=== PATIENT | female | born 1955 | race Caucasian/White ===

== ENCOUNTER → 2023-10-27 10:17 | Outpatient (REF) | payer MEDICARE, OTHER, SELFPAY | LOC: HWWDC 10:17 | PROVIDERS: ATTENDING PHYSICIAN Obstetrics & Gynecology Gynecology; FAMILY PHYSICIAN Nurse Practitioner Family | DX: Z12.31 Encounter for screening mammogram for malignant neoplasm of breast (principal) | CPT/HCPCS: 77063; 77067 ==

== ENCOUNTER → 2023-11-03 08:31 | Outpatient (REF) | payer MEDICARE, OTHER, SELFPAY | LOC: WDC 08:31 | PROVIDERS: ATTENDING PHYSICIAN Obstetrics & Gynecology Gynecology; FAMILY PHYSICIAN Nurse Practitioner Family | DX: R92.8 Other abnormal and inconclusive findings on diagnostic imaging of breast (principal) | CPT/HCPCS: 76642 ==

== ENCOUNTER 2023-12-04 14:26 | Emergency (ER) | payer MEDICARE, OTHER, SELFPAY ==
[2023-12-04 14:39] VITALS: BP 136/70
[2023-12-04] MEDS: TYLENOL 1000 MG PO (16:34)
--- NOTE | 2023-12-04 16:40 | ED.GENMED ---
History of Present Illness
General
Chief Complaint: Back Pain
Source: patient
Exam Limitations: none
Time Seen by Provider: 12/04/23 15:37
Nursing documentation reviewed up to this point in time: agreed with
Travel History
Have you had any contact with someone who has COVID-19?: No
Do you have any symptoms of coronavirus? Fever > 100 degrees, chills, cough, shortness of breath, sore throat, loss of taste or smell, muscle aches, or headache?: No
History of Present Illness
History of Present Illness:
68 y/o F with h/o palpitations, s/p ablation
Not anticoagulated presents for lower back pain after a fall. Patient says she was at 's was going to get a shopping cart and did not see a bar hanging down. She hit the top of her head on the bar and then fell backwards onto her back. She has
no nausea or vomiting, confusion, dazed feeling, headache. She does have a small lump at the top of her head. She was not concerned about her head but more about her lower back pain which is lower midline and nonradiating. She is not having any
numbness tingling weakness
she has pain with sitting, changing position, walking
nothing taken for pain
canot tolerate NSAIDS and opiates (vomits with vicodin)
Past History
Past History
ED Past Medical History: Hyperthyroidism ('Goiter' followed clinically)
ED Past Surgical History: Appendectomy, and Tonsilectomy
Social History
Tobacco: Non-smoker
Alcohol: None
Drug: None
Personal:
Living: with family
Review of Systems
Review of Systems
Allergies reviewed?: Yes
All Other Systems: Not applicable
Phy Exam
Physical Exam
Physical Exam:
GENERAL: Alert , in no apparent distress, comfortable at rest
HEAD: NCAT
NECK: no midline tenderness, active ROM intact, no paraspinal muscle tenderness;
CARDIAC: Regular rate and rhythm, no edema
LUNGS: Clear breath sounds bilaterally, no acute respiratory distress, no wheezes/rales/rhonchi
ABDOMEN: Soft, without focal tenderness, no r/g, no cvat, normal bowel sounds, nondistended
NEUROLOGICAL: Alert and oriented, no focal neuro deficits, CN intact, 5/5 strength, sensation intact, ambulation slight limp left leg
SKIN: Warm and dry,
MUSCULOSKELETAL: No edema, well perfused.
Back: No midline tenderness, no tenderness; some pain wwith changing psition no swelling
negative straight leg raise Bilaterally
PSYCH: Normal and appropriate interaction.
Course
Orders/Labs/Results
Orders:
Orders
12/04/23 16:28
Acetaminophen [Tylenol] 1,000 mg PO NOW STA
Lumbar Spine Complete, 4 View [CR Lumbar Spine Comp Min 4 Vw*] Urgent
Comment:
Reason For Exam: lower back pain after fall backwards
12/04/23 16:29
Lidocaine [Lidocaine 4% Patch] 1 patch TOPICAL NOW STA
12/04/23 18:18
Tramadol HCl [Ultram] 50 mg PO NOW STA
Vital Signs
Initial and Last Documented VS:
Initial Vital Signs
Temp Pulse Resp BP Pulse Ox
98.4 F 74 18 136/70 99
12/04/23 14:39 12/04/23 14:39 12/04/23 14:39 12/04/23 14:39 12/04/23 14:39
Last Documented Vital Signs
Temp Pulse Resp BP Pulse Ox
98.4 F 67 14 142/77 96
12/04/23 14:39 12/04/23 17:27 12/04/23 17:27 12/04/23 17:59 12/04/23 17:59
MDM/Problems Addressed
Differential Diagnosis Includes:
compression fx, head injury, ocncussion, contusion
MDM/Problems Addressed:
68 y/o F with mechanical fall back wards after striking top of her head on a bar
no headache, confusion, weakness etc
but moderate low back pain worse with changing position
no radicular symptoms
no red flag sypmtoms
exam pain with movement but otherwise benign
no sngiifncatn head hematoma
has been > 6 hours from the injury and no sequelae to be concerned about head injury
no thinners
offered ct which pt declined
xrays indep reviewed by me and shows compression fx l1
pt is able to walk
she wants tot ry tramadol
but cautious with vomiting so requeistng zofran
d/c home
f/u outpatient, pt/
*Critical Care Note
Total Time (30-74mins, 75-104mins- exclusive of procedures): Not Applicable
ED Attending Note
-
Portions of this chart may have been created with voice recognition software.� Occasional wrong word or��sound alike� substitutions may have occurred due to the inherent limitations of voice recognition software.
Discharge Plan
Departure
Patient Disposition: Home (Routine Discharge)
Date of Disposition: 12/04/23
Time of Disposition: 17:57
Patient with high blood pressure during this ER visit?: No
Condition: Fair
Covid-19: Not Applicable
Discharge Problem:
Compression fracture of lumbar vertebra
Instructions: Vertebral Compression Fracture (DC)
Prescriptions:
New
tramadol 50 mg tablet
50 mg PO Q8H PRN (Reason: Pain) Qty: 14 0RF
lidocaine 5 % adhesive patch,medicated
1 patch topical DAILY PRN (Reason: BACK PAIN) Qty: 15 0RF
ondansetron 4 mg tablet,disintegrating
4 mg PO Q8H PRN (Reason: nausea and vomiting) 2 Days Qty: 10 0RF
No Action
calcium carbonate 600 MG tablet
600 mg PO QPM
cholecalciferol (vitamin D3) [Vitamin D3] 2,000 UNIT capsule
2,000 unit PO QPM
Ginkoba 120 MG Tab
1 tab PO QPM
Patient Comments:
w/ vinpocetine
acetaminophen [Tylenol] 325 MG capsule
650 mg PO
Referrals:
Lewis Mitchell MD [Active] - Follow up in 1 week
Fransisca Melendez CRNP [Family Provider] - Follow up in 5-7 days
Activity Restrictions/Additional Instructions:
YOU HAVE A COMPRESSION FRACTURE IN YOUR SPINE L1
THESE ARE USUALLY TREATED WITH PAIN MEDICATIONS
SOMETIMES PHYSICAL THERAPY IS NECESSARY
DR. MITCHELL IS PAIN MANAGEMENT AND CAN HELP WITH THE PAIN
CALL YOUR DOCTOR FOR FOLLOW UP
RETURN FOR: LEG WEAKNESS, NUBMNESS, INCONTIENCE, FEVER, OR ANY CONCERNS.
TAKE TYLENOL 3 TIMES A DAY FOR PAIN
LIDOCAINE PATCH 12 HOURS ON 12 HOURS OFF NEEDE
D
IF THE PAIN IS WORSE YOU CAN TRY TRAMADOL 50 MG 2-3 TIME SA DAY
if you have nausea/vomiting you can use zofran 4 mg every 8 hours as needed
THIS CAN MAKE YOU SLEEPY, YOU CAN TRY TAKING COLACE 100 TWICE A DAY WHILE YOU ARE TAKING THAT BECAUSE OF CONSTIPATION
RETURN FOR ANY CONCERNS.
Interventions
Interventions:
*Risk Screen - Suicide Last Done: 12/04/23 14:39
*General Assessment Last Done: 12/04/23 14:39
*Neglect/Abuse Screening Last Done: 12/04/23 14:39
*ED COVID-19 Vaccine History Last Done: 12/04/23 14:39
*Nursing Disposition Last Done: 12/04/23 17:59
ED-Musculoskeletal Assessment Last Done: 12/04/23 17:58
Discharge Date and Time
Discharge Date/Time: 12/04/23 18:26
[2023-12-04] MEDS: LIDOCAINE 4% PATCH 1 PATCH TOPICAL (17:25)
[2023-12-04 17:27] VITALS: BP 142/77
[2023-12-04 17:59] VITALS: BP 142/77
[2023-12-04] MEDS: ULTRAM 50 MG PO (18:23)
== END 2023-12-04 18:26 | disposition home or self-care (01) ==
LOC: EMR 14:26
PROVIDERS: EMERGENCY PHYSICIAN Emergency Medicine; FAMILY PHYSICIAN Nurse Practitioner Family
DX: M48.56XA Collapsed vertebra, not elsewhere classified, lumbar region, initial encounter for fracture (principal); W19.XXXA Unspecified fall, initial encounter
CPT/HCPCS: 99283; 72110

== ENCOUNTER 2023-12-09 17:13 | Emergency (ER) | payer MEDICARE, OTHER, SELFPAY ==
[2023-12-09 17:20] VITALS: BP 153/60
--- NOTE | 2023-12-09 18:19 | ED.GENMED ---
History of Present Illness
General
Chief Complaint: Bowel Problem
Source: patient
Exam Limitations: none
Time Seen by Provider: 12/09/23 17:57
Travel History
Have you had any contact with someone who has COVID-19?: No
Do you have any symptoms of coronavirus? Fever > 100 degrees, chills, cough, shortness of breath, sore throat, loss of taste or smell, muscle aches, or headache?: No
History of Present Illness
History of Present Illness:
This is a 68 year old female that comes in with c/o constipation. States that last week she fell injuring her back. States that she palacios a compression Fracture of L1 and was placed on Tramadol for the pain. States that she hasn't had a BM since last
before the fall. States that she called the PCP and has taken Colace, Miralax and she felt bloated with this. States that today she use an enema and only got a few bullets out. States that the PCP told her to come to the ER. States that her
abd is sore. Denies any fever, chills, chest pain, SOB, nausea, vomiting, diarrhea, headache, dizziness, urinary burning
Past History
Past History
ED Past Medical History: Arrthythmia (Atrial fib/flutter), Hyperthyroidism ('Goiter' followed clinically) and Other (Diverticulitis, Goiter)
ED Past Surgical History: Appendectomy, Cardiac (Ablation), (X 3), Tonsilectomy and Other (Partial Thyroidectomy)
Social History
Tobacco: Non-smoker
Alcohol: Occasional
Drug: None
Personal:
Living: with family
Review of Systems
Review of Systems
All Other Systems: ROS reviewed and negative except as documented in HPI and ROS
Constitutional: Reports no symptoms; Denies fever or chills
EENT: Reports no symptoms
Respiratory: Denies cough or trouble breathing
Cardiac: Reports no symptoms; Denies chest pain
ABD/GI: Reports abdominal pain (Soreness) and constipated; Denies nausea, vomiting or diarrhea
: Reports no symptoms; Denies dysuria, frequency or urgency
Musculoskeletal: Reports no symptoms
Skin: Reports no symptoms
Neurological: Reports no symptoms; Denies dizzy or headache
Psychiatric: Reports no symptoms
Phy Exam
General Physical Exam
General Presentation: well appearing and no apparent distress
General age: appears stated age
General Skin: warm and dry
General Habitus: elderly
General Mental: alert
General Hydration: dry mucous membranes
ENT Exam
ENT Exam: TM's normal, pharynx normal and neck supple
Eye Exam
Eye Exam: EOMI
Cardiovascular Exam
Cardiovascular Exam: regular rate/rhythm, no edema, no murmur and normal peripheral pulses
Pulmonary Exam
Pulmonary Exam: lungs clear, no respiratory distress, no rales, chest non tender, no crackles, no rhonchi, no wheezing and no cough
Gastrointestinal Exam
Gastrointestinal Exam: soft, no organomegaly, no pulsatile mass, non distended, tender (Soreness with palpation) and other (Hypoactive bowel sounds)
Musculoskeletal Exam
Musculoskeletal Exam: full ROM and no edema
Skin Exam
Skin Exam: normal color, warm/dry, no petechia and other (Red angimas noted over abd)
Psychiatric Exam
Psychiatric Exam: normal mood/affect
Course
Orders/Labs/Results
Orders:
Orders
12/09/23 18:18
Obstruct Series W/PA Chest [CR Obstruct Series W/pa Chest] Urgent
Comment:
Reason For Exam: No BM since , abd discomfort
12/09/23 18:19
0.9% Sodium Chloride 1000 ml [Nss] 1,000 ml IV BOLUS
12/09/23 18:20
Complete Blood Count/With Diff Urgent
Comprehensive Metabolic Panel Urgent
12/09/23 19:59
Enema- Treatment ONCE
Type: Milk of Molasses
Abnormal Lab Results
12/09/23
18:20
MCHC 32.8 L g/dL
(33.0-37.0)
RDW 14.6 H %
(11.5-14.5)
Absolute Neuts (auto) 6.8 H 10^3/uL
(1.4-6.5)
Lymphocytes % 18.6 L %
(20.5-51.1)
Sodium 133 L mmol/L
(135-145)
Glucose 105 H mg/dl
(70-99)
12/09/23 18:20
12/09/23 18:20
Sodium slightly low. Glucose nonfasting.
Vital Signs
Initial and Last Documented VS:
Initial Vital Signs
Temp Pulse Resp BP Pulse Ox
98.3 F 79 18 153/60 98
12/09/23 17:20 12/09/23 17:20 12/09/23 17:20 12/09/23 17:20 12/09/23 17:20
Last Documented Vital Signs
Temp Pulse Resp BP Pulse Ox
98.3 F 64 16 130/58 97
12/09/23 17:20 12/09/23 18:26 12/09/23 18:26 12/09/23 18:26 12/09/23 18:26
MDM/Problems Addressed
Differential Diagnosis Includes:
Constipation,
MDM/Problems Addressed:
This is a 68 year old female that comes in with c/o no BM since last . States that she fell after this and was place on Tramadol. Patient states that she has tried Colace, Miralax and an enema today with only small bullets.
Will check labs, get Obstruction series, give IV fluids and enema as needed.
Back into see patient. Patient states that she has now gone several times since the enema. Explained that this may be just enough to stimulate the bowel. Explained to patient that she needs to start eating and that the Tramadol may be causing her
constipation. Patient is going to stop the Tramadol. Encouraged her to use Tylenol arthritis which is the max amount of Tylenol that you can take. Patient can also use heat or ice to the back. Follow up with the family doctor. Patient to return with
increased pain or any other concerns.
Chronic conditions affecting care:
NA
Acute Exacerbation and/or Progression of Chronic Illness:
NA
*Radiology
Radiology exam reviewed: radiology read reviewed (Obstruction series- MOderate fecal material in the transverse, descending and sigmoid colon. NO radiiographic evidence for colonic or small bowel obstruction. No radiographic evidence for acute
cardiopulmonary disease. Mild scoliotic curvature of the thoracolumbar spine. )
*Pulse Oximetry
Patient hypoxic: no
*EKG
Interpreted by ED Provider?: NA
Rate: EKG- N/A
*Bleacher Kraft Pulp Interpretation
Rate: Bleacher Kraft Pulp- N/A
*Critical Care Note
Total Time (30-74mins, 75-104mins- exclusive of procedures): Not Applicable
ED Attending Note
-
Portions of this chart may have been created with voice recognition software.� Occasional wrong word or��sound alike� substitutions may have occurred due to the inherent limitations of voice recognition software.
Discharge Plan
Departure
Patient Disposition: Home (Routine Discharge)
Date of Disposition: 12/09/23
Time of Disposition: 22:15
Patient with high blood pressure during this ER visit?: Yes
Condition: Good
Covid-19: Not Applicable
Discharge Problem:
Acute constipation
Instructions: Constipation, Adult (DC), BLOOD PRESSURE
Prescriptions:
No Action
calcium carbonate 600 MG tablet
600 mg PO QPM
cholecalciferol (vitamin D3) [Vitamin D3] 2,000 UNIT capsule
2,000 unit PO QPM
Ginkoba 120 MG Tab
1 tab PO QPM
Patient Comments:
w/ vinpocetine
acetaminophen [Tylenol] 325 MG capsule
650 mg PO
tramadol 50 mg tablet
50 mg PO Q8H PRN (Reason: Pain) Qty: 14 0RF
lidocaine 5 % adhesive patch,medicated
1 patch topical DAILY PRN (Reason: BACK PAIN) Qty: 15 0RF
ondansetron 4 mg tablet,disintegrating
4 mg PO Q8H PRN (Reason: nausea and vomiting) 2 Days Qty: 10 0RF
Referrals:
Fransisca Melendez CRNP [Family Provider] - Call in 1-3 days for appt
Activity Restrictions/Additional Instructions:
As discussed, your Obstruction series shows that there is no obstruction. There is moderate stool burden in the colon. You have been given an enema here that will help stimulate the bowel to move. Please increase your water intake to 8-8oz glasses
daily. You may also use Prune juice and mix this with apple juice and heat and drink daily. Follow up wtih the family doctor for recheck. You may use Tylenol arthritis for pain. IF YOU HAVE INCREASED ABD PAIN, OR YOU HAVE ANY OTHER CONCERNS PLEASE
RETURN TO THE EMERGENCY ROOM.
Interventions
Interventions:
*Risk Screen - Suicide Last Done: 12/09/23 18:16
*General Assessment Last Done: 12/09/23 18:15
*Neglect/Abuse Screening Last Done: 12/09/23 18:16
*ED COVID-19 Vaccine History Last Done: 12/09/23 18:15
CH-Txcpxg-Qomrxhcuif Assessment Last Done: 12/09/23 18:18
[2023-12-09] MEDS: NSS 1000 IV (18:25)
[2023-12-09 18:26] VITALS: BP 130/58
[2023-12-09 18:37] LABS: % Basophils 0.1 % (0-2); % Eosinophils 0.7 % (0-6); % Immature Granulocytes 0.3 % (0-0.5); % Lymphocytes 18.6 % (20.5-51.1); % Monocytes 5.7 % (1.7-9.3); % Neutrophils 74.6 % (42.2-75.2); Absolute Eosinophils 0.1 10^3/uL (0-0.7); Absolute Lymphocytes 1.7 10^3/uL (1.2-3.4); Absolute Monocytes 0.5 10^3/uL (0.1-0.6); Absolute Neutrophils 6.8 10^3/uL (1.4-6.5); Hemoglobin 12.8 g/dL (12.0-16.0); Mean Corp Hgb Conc. 32.8 g/dL (33.0-37.0); Mean Corpuscular Hgb 27.5 pg (27.0-31.0); Mean Corpuscular Volume 83.7 fL (81.0-99.0); Mean Platelet Volume 10.2 fL (7.4-10.4); Nucleated Red Blood Cells % 0 %; Platelet Count 248 10^3/uL (130-400); Red Blood Cell Count 4.66 10^6/uL (4.20-5.40); Red Cell Dist. Width 14.6 % (11.5-14.5); White Blood Cell Count 9.1 10^3/uL (4.8-10.8)
[2023-12-09 19:00] LABS: ALT (SGPT) 20 U/L (0-35); AST (SGOT) 26 U/L (14-36); Albumin 4.2 g/dl (3.5-5.0); Alkaline Phosphatase 98 U/L (38-126); Blood Urea Nitrogen 14 mg/dl (7-17); Calcium 9.3 mg/dl (8.4-10.2); Carbon Dioxide 25 mmol/L (22-30); Chloride 101 mmol/L (98-107); Glucose 105 mg/dl (70-99); Potassium 4.2 mmol/L (3.5-5.1); Sodium 133 mmol/L (135-145); Total Bilirubin 0.7 mg/dl (0.2-1.3); Total Protein 7.6 g/dl (6.3-8.2); eGFR > 60.00
[2023-12-09 22:34] VITALS: BP 119/61
== END 2023-12-09 22:35 | disposition home or self-care (01) ==
LOC: EMR 17:13
PROVIDERS: Clinical Nurse Specialist Family Health; EMERGENCY PHYSICIAN Student in an Organized Health Care Education/Training Program; FAMILY PHYSICIAN Nurse Practitioner Family
DX: K59.00 Constipation, unspecified (principal); I48.91 Unspecified atrial fibrillation; E05.90 Thyrotoxicosis, unspecified without thyrotoxic crisis or storm
CPT/HCPCS: 99283; 74022; 80053; 85025

== ENCOUNTER → 2024-01-09 10:26 | Outpatient (REF) | payer MEDICARE, OTHER, SELFPAY | LOC: HWRAD 10:26 | PROVIDERS: ATTENDING PHYSICIAN Nurse Practitioner Family | DX: M25.812 Other specified joint disorders, left shoulder (principal) | CPT/HCPCS: 73030 ==

== ENCOUNTER → 2024-01-29 10:15 | Outpatient (REF) | payer MEDICARE, OTHER, SELFPAY | LOC: HWRAD 10:15 | PROVIDERS: ATTENDING PHYSICIAN Nurse Practitioner Family | DX: K59.00 Constipation, unspecified (principal) | CPT/HCPCS: 74018 ==

== ENCOUNTER → 2024-07-02 07:26 | Outpatient (REF) | payer MEDICARE, OTHER, SELFPAY ==
[2024-07-02 09:40] LABS: % Basophils 0.2 % (0-2); % Eosinophils 1.1 % (0-6); % Immature Granulocytes 0.2 % (0-0.5); % Lymphocytes 22.6 % (20.5-51.1); % Monocytes 4.6 % (1.7-9.3); % Neutrophils 71.3 % (42.2-75.2); Absolute Eosinophils 0.1 10^3/uL (0-0.7); Absolute Lymphocytes 1.5 10^3/uL (1.2-3.4); Absolute Monocytes 0.3 10^3/uL (0.1-0.6); Absolute Neutrophils 4.6 10^3/uL (1.4-6.5); Hematocrit 41.3 % (37.0-47.0); Hemoglobin 13.6 g/dL (12.0-16.0); Mean Corp Hgb Conc. 32.9 g/dL (33.0-37.0); Mean Corpuscular Hgb 28.5 pg (27.0-31.0); Mean Corpuscular Volume 86.4 fL (81.0-99.0); Mean Platelet Volume 10.9 fL (7.4-10.4); Nucleated Red Blood Cells % 0 %; Platelet Count 261 10^3/uL (130-400); Red Blood Cell Count 4.78 10^6/uL (4.20-5.40); Red Cell Dist. Width 14.6 % (11.5-14.5); White Blood Cell Count 6.5 10^3/uL (4.8-10.8)
[2024-07-02 11:10] LABS: TSH Reflex To Free T4 2.29 uIU/ml (0.47-4.68)
[2024-07-02 11:15] LABS: ALT (SGPT) 25 U/L (0-35); AST (SGOT) 31 U/L (14-36); Albumin 4.3 g/dl (3.5-5.0); Alkaline Phosphatase 91 U/L (38-126); Blood Urea Nitrogen 18 mg/dl (7-17); Calcium 9.7 mg/dl (8.4-10.2); Carbon Dioxide 28 mmol/L (22-30); Chloride 102 mmol/L (98-107); Glucose 92 mg/dl (70-99); HDL Cholesterol 67 mg/dl; LDL Cholesterol, Calculated 108 mg/dl; Potassium 4.5 mmol/L (3.5-5.1); Sodium 143 mmol/L (135-145); Total Bilirubin 0.7 mg/dl (0.2-1.3); Total Cholesterol 191 mg/dl (50-199); Total Protein 7.3 g/dl (6.3-8.2); Triglyceride 80 mg/dl (10-149); Very Low Density Lipoprotein 16 mg/dl (0-30); eGFR > 60.00
[2024-07-02 13:11] LABS: Vitamin D, 25-OH*** 56.1 ng/mL (30-80)
== END ==
LOC: HWLAB 07:26
PROVIDERS: ATTENDING PHYSICIAN Nurse Practitioner Family
DX: Z00.00 Encounter for general adult medical examination without abnormal findings (principal); M85.80 Other specified disorders of bone density and structure, unspecified site; I48.0 Paroxysmal atrial fibrillation; G43.009 Migraine without aura, not intractable, without status migrainosus; E55.9 Vitamin D deficiency, unspecified; E05.90 Thyrotoxicosis, unspecified without thyrotoxic crisis or storm
CPT/HCPCS: 36415; 80053; 80061; 82306; 84443; 85025

== ENCOUNTER → 2024-07-22 06:21 | Day surgery (SDC) | payer MEDICARE, OTHER, SELFPAY | LOC: GI 06:21 | PROVIDERS: ATTENDING PHYSICIAN Internal Medicine Gastroenterology | DX: D12.2 Benign neoplasm of ascending colon (principal); K57.30 Diverticulosis of large intestine without perforation or abscess without bleeding; Q43.8 Other specified congenital malformations of intestine; K64.8 Other hemorrhoids; Z86.0101 Personal history of adenomatous and serrated colon polyps | CPT/HCPCS: 45385; 88305 ==

== ENCOUNTER → 2024-11-10 08:35 | Outpatient (REF) | payer MEDICARE, OTHER, SELFPAY | LOC: HWWDC 08:35 | PROVIDERS: ATTENDING PHYSICIAN Obstetrics & Gynecology Gynecology; FAMILY PHYSICIAN Nurse Practitioner Family | DX: M81.0 Age-related osteoporosis without current pathological fracture (principal); Z12.31 Encounter for screening mammogram for malignant neoplasm of breast | CPT/HCPCS: 77063; 77067; 77080 ==

== ENCOUNTER → 2025-01-04 09:17 | Outpatient (REF) | payer MEDICARE, OTHER, SELFPAY ==
[2025-01-04 12:51] LABS: Rubella Positive
[2025-01-06 13:40] LABS: Mumps Virus IgG Positive; Rubeola (Measles) IgG Positive
== END ==
LOC: HWLAB 09:17
PROVIDERS: ATTENDING PHYSICIAN Nurse Practitioner Family
DX: Z01.84 Encounter for antibody response examination (principal)
CPT/HCPCS: 36415; 86735; 86762; 86765

== ENCOUNTER → 2025-07-29 08:48 | Outpatient (REF) | payer MEDICARE, OTHER, SELFPAY ==
[2025-07-29 12:25] LABS: Hematocrit 43.3 % (37.0-47.0); Hemoglobin 13.8 g/dL (12.0-16.0); Mean Corp Hgb Conc. 31.9 g/dL (33.0-37.0); Mean Corpuscular Volume 88.2 fL (81.0-99.0); Nucleated Red Blood Cells % 0 %; Platelet Count 249 10^3/uL (130-400); Red Cell Dist. Width 14.0 % (11.5-14.5)
[2025-07-29 12:45] LABS: ALT (SGPT) 23 U/L (0-35); AST (SGOT) 28 U/L (14-36); Albumin 4.6 g/dl (3.5-5.0); Alkaline Phosphatase 83 U/L (38-126); Blood Urea Nitrogen 21 mg/dl (7-17); Calcium 9.7 mg/dl (8.4-10.2); Carbon Dioxide 31 mmol/L (22-30); Chloride 104 mmol/L (98-107); Glucose 87 mg/dl (70-99); HDL Cholesterol 73 mg/dl; LDL Cholesterol, Calculated 106 mg/dl; Potassium 4.3 mmol/L (3.5-5.1); Sodium 141 mmol/L (135-145); Total Protein 7.8 g/dl (6.3-8.2); Very Low Density Lipoprotein 17 mg/dl (0-30); eGFR > 60.00
[2025-07-29 13:05] LABS: Vitamin D, 25-OH*** 52.5 ng/mL (30-80)
[2025-07-29 13:19] LABS: TSH 2.16 uIU/ml (0.47-4.68)
[2025-07-29 13:45] LABS: Glycohemoglobin (HgbA1c) 5.2 % (4.0-5.9)
== END ==
LOC: HWLAB 08:48
PROVIDERS: ATTENDING PHYSICIAN Nurse Practitioner Family
DX: R31.29 Other microscopic hematuria (principal); R87.610 Atypical squamous cells of undetermined significance on cytologic smear of cervix (ASC-US); K21.9 Gastro-esophageal reflux disease without esophagitis; I48.0 Paroxysmal atrial fibrillation; G43.009 Migraine without aura, not intractable, without status migrainosus; E55.9 Vitamin D deficiency, unspecified; E05.90 Thyrotoxicosis, unspecified without thyrotoxic crisis or storm; M81.0 Age-related osteoporosis without current pathological fracture; K57.90 Diverticulosis of intestine, part unspecified, without perforation or abscess without bleeding
CPT/HCPCS: 36415; 80053; 80061; 82306; 83036; 84439; 84443; 85025